=== PATIENT | male | born 1965 | race Caucasian/White ===

== ENCOUNTER 2017-03-17 15:34 | Emergency (ER) | payer BC, OTHER ==
[~2017-03-17] VITALS: Ht 175.3 cm; Wt 81.3 kg
[~2017-03-17 15:34] MED LIST: HYDR-5688 PO; RXC5 PO
[2017-03-17 15:43] VITALS: TEMP 36.7; Ht 175.3 cm; Wt 81.3 kg
[2017-03-17] MEDS ORDERED: IBUPROFEN 600 MG TAB PO STA (16:13)
[2017-03-17] MEDS ORDERED: OXYCODONE/ACETAMINOPHEN 5-325 TAB PO STA (16:13)
--- NOTE | 2017-03-17 17:05 | DIAGNOSTIC IMAGING REPORT ---
RIGHT TIBIA AND FIBULA 2 VIEWS CLINICAL HISTORY: Right leg pain. FINDINGS: AP and lateral views of the right tibia and fibula are obtained. No prior studies are available for comparison at the time of dictation. The skeletal structures are well mineralized. No fracture is seen. The knee and ankle joints are grossly maintained. The overlying soft tissues are within normal limits. IMPRESSION: There is no radiographic evidence of right tibial or fibular fracture. Electronically signed by: Fredo Parker M.D. 03/17/2017 5:04 PM Dictated Date/Time: 03/17/2017 5:03 PM
--- NOTE | 2017-03-17 18:15 | DIAGNOSTIC IMAGING REPORT ---
ULTRASOUND RIGHT LOWER EXTREMITY VENOUS CLINICAL HISTORY: Right leg pain. COMPARISON STUDY: No priors. TECHNIQUE: Real-time, grayscale, and color Doppler sonography of the deep veins of the right lower extremity was performed from the inguinal crease to the calf. Compression and augmentation were utilized. FINDINGS: There is no sonographic evidence of deep venous thrombosis identified in the right lower extremity. The common femoral, superficial femoral, and popliteal veins are patent and normally compressible. The greater saphenous vein and the profunda femoris vein at the junction with the common femoral vein are clear. The visualized calf veins are patent. No abnormality is identified in the right calf at the indicated site of pain. IMPRESSION: There is no sonographic evidence of deep venous thrombosis identified in the right lower extremity. Electronically signed by: Fredo Parker M.D. 03/17/2017 6:13 PM Dictated Date/Time: 03/17/2017 6:13 PM
[2017-03-17] MEDS ORDERED: OXYC1TAB3 PO (18:29)
[2017-03-17] MEDS ORDERED: OXYCODONE IR HOME PACK PO ONE (18:30)
[2017-03-17 18:49] VITALS: BP 113/78; PULSE 53; O2SAT 97
--- NOTE | 2017-03-17 23:24 | EMERGENCY ROOM VISIT NOTE ---
History First contact with patient: 16:02 Chief Complaint: LEG PAIN,LEG INJURY Stated Complaint: R LOWER LEG PAIN History of Present Illness The patient is a 51 year old male who presents to the Emergency Room with complaints of pain along the outside of his right calf. His pain has been worsening over the past 2 or 3 days and appears to worsen with standing long periods of time. The patient does have a history of back pain with sciatica, but states this feels different from previous episodes of this. He has not taken anything [id number]-egi-[id number] today for his symptoms. He does not have a fall or other injury. No difficulty using the bathroom. No recent travel history. The patient rates his discomfort a 5/10 at rest. Review of Systems More than 10 systems were reviewed and otherwise negative with the exception of history of present illness. Past Medical/Surgical History History of chronic back pain Family History No pertinent family history Social History Smoking Status: Current Every Day Smoker Alcohol Use: none Drug Use: none Marital Status: Occupation Status: employed Current/Historical Medications Scheduled Oxycodone Immediate Rel Tab (Roxicodone Ir), 1-2 TAB PO Q6 Allergies Coded Allergies: No Known Allergies (Unverified , 03/23/15) Physical Exam Vital Signs Date Time Temp Pulse Resp B/P Pulse Ox O2 Delivery O2 Flow Rate FiO2 03/17/17 18:49 53 16 113/78 97 03/17/17 17:30 61 20 129/86 97 Room Air 03/17/17 15:43 36.7 65 20 110/69 92 Room Air Pain Rating (0-10): 4.0 Physical Exam VITALS: Vitals are noted on the nurse's note and reviewed by myself. Vital signs stable. GENERAL: Well-developed, well-nourished, white male, who is in no acute distress and resting comfortably. Patient is cooperative with the examination. HEAD: Normocephalic atraumatic. HEART: Regular rate and rhythm without murmurs gallops or rubs. LUNGS: Clear to auscultation bilaterally without wheezes, rales or rhonchi. No retractions or accessory muscle use. MUSCULOSKELETAL: No palpable tenderness of the lower lumbar spine or SI joints. Negative straight leg raise bilateral. There is palpable tenderness along the right lateral aspect of the right gastroc. There is no palpable cords or evidence of infection. Neurovascular status is intact the distal extremity. The patient is with full strength and range of motion. NEURO: Patient was alert and oriented to person place and time. CN II through XII grossly intact. Deep tendon reflexes 2+ throughout. Medical Decision & Procedures ER Provider Diagnostic Interpretation: ULTRASOUND RIGHT LOWER EXTREMITY VENOUS CLINICAL HISTORY: Right leg pain. COMPARISON STUDY: No priors. TECHNIQUE: Real-time, grayscale, and color Doppler sonography of the deep veins of the right lower extremity was performed from the inguinal crease to the calf. Compression and augmentation were utilized. FINDINGS: There is no sonographic evidence of deep venous thrombosis identified in the right lower extremity. The common femoral, superficial femoral, and popliteal veins are patent and normally compressible. The greater saphenous vein and the profunda femoris vein at the junction with the common femoral vein are clear. The visualized calf veins are patent. No abnormality is identified in the right calf at the indicated site of pain. IMPRESSION: There is no sonographic evidence of deep venous thrombosis identified in the right lower extremity. RIGHT TIBIA AND FIBULA 2 VIEWS CLINICAL HISTORY: Right leg pain. FINDINGS: AP and lateral views of the right tibia and fibula are obtained. No prior studies are available for comparison at the time of dictation. The skeletal structures are well mineralized. No fracture is seen. The knee and ankle joints are grossly maintained. The overlying soft tissues are within normal limits. IMPRESSION: There is no radiographic evidence of right tibial or fibular fracture. Medications Administered Medications (Trade) Dose Ordered Sig/Palomo Route Start Time Stop Time Status Last Admin Dose Admin Oxycodone/ Acetaminophen (Percocet 5-325mg Tab) 1 tab NOW STAT PO 03/17/17 16:13 03/17/17 16:15 DC 03/17/17 16:13 1 TAB Ibuprofen (Motrin Tab) 600 mg NOW STAT PO 03/17/17 16:13 03/17/17 16:15 DC 03/17/17 16:13 600 MG Oxycodone HCl (Roxicodone Immediate Rel 5MG Home Pack) 1 homepack UD ONCE PO 03/17/17 18:30 03/17/17 18:31 DC 03/17/17 18:47 1 HOMEPACK ED Course Physical exam and history were performed. Nursing notes and EMR were reviewed. Patient appears to have pain in his right calf for the past few days. The patient was given Percocet here in the department by mouth. X-ray and ultrasound were performed. X-ray does not show acute bony mallet. Ultrasound is without evidence of DVT. Clinically I suspect that some of the patient's discomfort may be from sciatic-related symptoms. He did have improvement of his discomfort after pain medication, and I will give him a short course of OxyIR. The patient states that he has a Medrol Dosepak at home that he will start today as well. I did recommend the patient follow with his primary care physician for further care and management, as I suspect his symptoms are musculoskeletal. The patient was pleased with this and voiced understanding. He was discharged home under the care of a female scallop raker who is acting as the street flusher driver today. The chart was completed utilizing [employer] Speech Voice Recognition Software. Grammatical errors, random word insertions, pronoun errors, and incomplete sentences are an occasional consequence of this system due to software limitations, ambient noise, and hardware issues. Any formal questions or concerns about the content, text, or information contained within the body of this dictation should be directly addressed to the provider for clarification. . Medical Decision Differential diagnosis: Etiologies such as DVT, musculoskeletal, infection, joint effusion, trauma, lymphedema, idiopathic, CHF, as well as others were entertained.. Impression Primary Impression: Right leg pain Departure Information Dispostion Home / Self-Care Condition GOOD Prescriptions Oxycodone Immediate Rel Tab (ROXICODONE IR) 5 Mg Tab 1-2 TAB PO Q6, #15 TAB Initial therapy Prov: Moses Decker PA-C 03/17/17 Forms HOME CARE DOCUMENTATION FORM, IMPORTANT VISIT INFORMATION Patient Instructions My [facility] Additional Instructions You were seen and evaluated today on an emergency basis only. This is not a substitute for, or an effort to provide, complete comprehensive medical care. It is not possible to recognize and treat all injuries or illnesses in a single emergency department visit. For this reason it is recommended that you followup with your primary care physician next week for ongoing care and evaluation. For baseline pain relief you may alternate ibuprofen and acetaminophen every 4 hours for pain control. Take 600 mg ibuprofen (Advil) and then 4 hours later take 1000 mg acetaminophen (Tylenol). Do not take more than 3000 mg acetaminophen in a single day. Oxycodone (OxyIR) 5mg: Take ONE or TWO pill every SIX hours for breakthrough pain. Avoid alcohol, operating machinery or dangerous equipment, working on ladders or roofs, DRIVING, or situations where being under the influence may be dangerous. It is recommended to use an [id number] stool softener such as Colace, 100mg twice daily while taking this medication to avoid constipation. Begin your Medrol Dosepak as previously prescribed. You are welcome to return to the emergency department anytime with new, worsening, or concerning symptoms.
== END 2017-03-17 18:52 | disposition home or self-care (01) ==
LOC: C.EDB 15:35 → C.EDD 18:52
DX: M79.661 Pain in right lower leg (principal); M54.40 Lumbago with sciatica, unspecified side; G89.29 Other chronic pain; F17.200 Nicotine dependence, unspecified, uncomplicated